=== PATIENT | male | born 1985 | race African-American/Black ===

== ENCOUNTER 2016-04-14 16:36 | Emergency (ER) | payer OTHER ==
[~2016-04-14] VITALS: Ht 185.4 cm; Wt 63.5 kg
[~2016-04-14 16:36] MED LIST: IBUPROFEN600 MG ORAL; NORCO 5-325 TA1 EACH ORAL
[2016-04-14 17:51] VITALS: BP 126/78
[2016-04-14] MEDS ORDERED: IBUPROFEN600 MG ORAL (21:29)
[2016-04-14 21:44] VITALS: BP 130/74
[2016-04-14 21:49] VITALS: BP 126/78
--- NOTE | 2016-04-15 12:07 | Diagnostic Imaging Report ---
Indication: Right foot pain Technique: Continuous helical transaxial imaging of the right foot was obtained. No intravenous contrast was administered. Coronal 2-D reformats were also obtained. Total Dose length Product (DLP): [address] Dose Index Volume (CTDIvol): 16 mGy Comparison: none Findings: There is a comminuted nondisplaced fracture of the medial cuneiform. Fracture extends into the medial cuneiform/first metatarsal joint. The exam is negative otherwise. There is a small amount of soft tissue swelling present. Impression: Acute nondisplaced comminuted fracture of the medial cuneiform. [facility] has communicated the preliminary results to the Emergency Department. Their findings are largely concordant with this report. The CT scanner at [facility] is accredited by the [employer] and the scans are performed using protocols designed to limit radiation exposure to as low as reasonably achievable to attain images of sufficient resolution adequate for diagnostic evaluation.
--- NOTE | 2016-04-15 12:29 | Emergency Room Report ---
History of Present Illness General Chief Complaint: Pain Source: Patient Present Illness HPI The patient is a 30-year-old male presenting with right hand and right foot pain which began 2 weeks prior after dropping a heavy metal object. 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 The patient noted pain at the time but did not think anything of it. The pain has now persisted and is described as a 5/10 dull ache to both areas. The patient denies any numbness or tingling he denies prior injury to these areas. The patient states that the pain is worse with movement and the foot pain increases with walking. Allergies: Coded Allergies: No Known Allergies (Unverified , 05/17/15) Patient History Past Medical History: see triage record Pertinent Family History: none Reviewed Nursing Documentation: PMH: Agreed, PSxH: Agreed Nursing Documentation-PMH Past Medical History: No Stated History Review of Systems All Other Systems: negative except mentioned in HPI Physical Exam Vital Signs Date Time Temp Pulse Resp B/P Pulse Ox O2 Delivery O2 Flow Rate FiO2 04/14/16 17:05 97.5 76 19 126/78 99 Room Air Sp02 EP Interpretation: reviewed, normal General Appearance: no apparent distress, alert, GCS 15, non-toxic Head: normocephalic, atraumatic Eyes: bilateral eye PERRL, bilateral eye normal inspection ENT: hearing grossly normal, normal pharynx, no angioedema, normal voice Neck: full range of motion, supple/symm/no masses Respiratory: chest non-tender, lungs clear, normal breath sounds, speaking full sentences Cardiovascular #1: regular rate, rhythm, no edema Cardiovascular #2: 2+ carotid (R), 2+ carotid (L), 2+ radial (R), 2+ radial (L) , 2+ dorsalis pedis (R), 2+ dorsalis pedis (L) Gastrointestinal: normal bowel sounds, non tender, soft, non-distended, no guarding, no rebound Rectal: deferred Genitourinary: normal inspection, no CVA tenderness Musculoskeletal: back normal, gait/station normal, decreased range of motion - of the R MCPJ, tender - TTP over R 4th MCP and R medial dorsal foot Neurologic: alert, oriented x3, responsive, motor strength/tone normal, sensory intact, speech normal Psychiatric: judgement/insight normal, memory normal, mood/affect normal, no suicidal/homicidal ideation Reflexes: 3+ bicep (R), 3+ bicep (L), 3+ tricep (R), 3+ tricep (L), 3+ knee (R) , 3+ knee (L) Skin: normal color, no rash, warm/dry, well hydrated Lymphatic: no adenopathy Procedures Splinting Splinting #1: Consent: Verbal Location: R arm Splint: ulnar Pre-Proc Neuro Vasc Exam: normal Post-Proc Neuro Vasc Exam: normal Patient Tolerated: Well Complications: None Splinting #2: Consent: Verbal Location: R foot Splint: poserior short Pre-Proc Neuro Vasc Exam: normal Post-Proc Neuro Vasc Exam: normal Patient Tolerated: Well Complications: None Medical Decision Making PA Attestation Dr. Alamo is my supervising physician. Patient management was discussed with my supervising physician Diagnostic Impression: Primary Impression: Fracture of foot bone, right, closed Additional Impression: Hand fracture, right ER Course The patient is a 30-year-old male presenting with right hand and right foot pain which began 2 weeks prior after dropping a heavy metal object. Ddx considered include but not limited to sprain/strain, fracture, contusion PE: NAD R hand:There is tenderness to palpation over the fourth distal metacarpal. Limited active range of motion at the MCP joint. Sensation intact to light touch. Mild ecchymosis over the dorsal surface. Right foot: No obvious deformity. There is tenderness to palpation over the medial aspect dorsal surface. Full AROM of ankle and toes. Normal gait. X-ray of the right hand shows fracture of the right fourth metacarpal. X-ray of the right foot is questionable for fracture. CT scan ordered. CT of the right foot shows fracture of the cuneiform. The patient is placed in a ulnar gutter splint and a posterior short leg splint. The patient is also provided crutches and will follow up with primary care physician for further care. ER precautions are given Other X-Ray Diagnostic Results Other X-Ray Diagnostic Results #1: X-Ray Ordered: R hand Date: Apr 14, 2016 EP Interpretation: Yes Findings: no dislocation, no soft tissue swelling, other - fracture Number of Views: 3 PA Scribe Text I am acting as scribe for my supervising physician. My supervising physician's interpretation of the R hand xrays are there There is a fracture of the fourth distal metacarpal Other X-Ray Diagnostic Results #2: X-Ray Ordered: R foot Date: Apr 14, 2016 EP Interpretation: Yes Findings: no dislocation, no soft tissue swelling Number of Views: 3 PA Scribe Text I am acting as scribe for my supervising physician. My supervising physician's interpretation of the right foot x-ray is that there is a fracture of the cuneiform CT/MRI/US Diagnostic Results CT/MRI/US Diagnostic Results : Imaging Test Ordered: CT R foot Impression Acute nondisplaced comminuted fracture of the medial cuneiform. Last Vital Signs Date Time Temp Pulse Resp B/P Pulse Ox O2 Delivery O2 Flow Rate FiO2 04/14/16 21:49 97.5 74 19 126/78 99 Room Air Status: improved Disposition: HOME, SELF-CARE Condition: Improved Scripts Ibuprofen* (MOTRIN*) 600 Mg Tablet 600 MG ORAL Q8H Y for For Pain, #30 TAB 0 Refills Prov: FAUSTINO LONGORIA 04/14/16 Patient Instructions: Cuneiform Fracture, Metacarpal Fracture Additional Instructions: I discussed my findings with the patient. All questions and concerns have been answered. Treatment and medication compliance have been addressed. I advised the patient that they need to follow up with PMD in 3-5 days. Return to ED if pain remains or worsens, numbness or tingling occurs, new rash is noticed, fever is noticed, or if needed for any reason. Patient verbalized understanding of discharge instructions. FAUSTINO LONGORIA Apr 15, 2016 12:29
--- NOTE | 2016-04-15 12:58 | Diagnostic Imaging Report ---
Indication: Pain Comparison: None Findings: 3 views of the right foot were obtained. There is a fracture of the first cuneiform. This is demonstrated on CT which confirmed the diagnosis. Remainder the exam is negative. Impression: Fracture of the medial cuneiform
--- NOTE | 2016-04-20 10:30 | Diagnostic Imaging Report ---
Indication: pain Findings: 3 views of the right hand were obtained. There is acute fracture with slight impaction involving the distal part of the fourth metacarpal. Impression: Acute fracture distal fourth metacarpal
== END 2016-04-14 21:50 | disposition home or self-care (01) ==
LOC: EMR 17:50
DX: S92.241A Displaced fracture of medial cuneiform of right foot, initial encounter for closed fracture (principal); S62.91XA Unspecified fracture of right hand, initial encounter for closed fracture; W20.8XXA Other cause of strike by thrown, projected or falling object, initial encounter; Y92.89 Other specified places as the place of occurrence of the external cause; Y99.0 Civilian activity done for income or pay
CPT/HCPCS: 29515